=== PATIENT | male | born 1995 | race Caucasian/White ===

== ENCOUNTER 2023-06-23 08:58 | Emergency (ER) | payer OTHER, SELFPAY ==
[2023-06-23 09:04] VITALS: BP 128/95; PULSE 80; RESP 18; TEMP 36.6; O2SAT 98; BMI 37.4
--- NOTE | 2023-06-23 09:15 | ED.BACK1 ---
HPI - Back Pain/Injury General Chief Complaint: Back Pain/Injury Stated Complaint: BACK PAIN Time Seen by Provider: 06/23/23 09:06 Source: patient Mode of arrival: walk-in History of Present Illness HPI Narrative: [age] sexual male presents for lower back pain. He's had it for two weeks and it started after lifting a heavy item and he twisted and since then he's had pain. It doesn't radiate. He didn't fall and nothing struck him in his back. The pain is moderate and worse in certain positions. No dysuria or hematuria or abdominal pain. Related Data Previous Rx's Medication Instructions Recorded cyclobenzaprine 10 mg tablet 10 mg PO TID PRN muscle spasm #20 06/23/23 tabs etodolac 400 mg tablet (Lodine) 400 mg PO BID #20 tabs 06/23/23 Allergies Allergy/AdvReac Type Severity Reaction Status Date / Time acetaminophen AdvReac Intermediate Verified 06/23/23 09:04 [From Tylenol-Codeine #3] codeine AdvReac Intermediate Verified 06/23/23 09:04 [From Tylenol-Codeine #3] Review of Systems ROS Narrative A ten point review of systems is negative except as noted above. Exam Narrative Exam Narrative: Nurses note and vital signs reviewed and patient is not hypoxic. General: The patient appears well and in no apparent distress. Patient is resting comfortably on cart. he has discomfort rolling onto his side for back examination. Skin: Warm, dry, no pallor noted. There is no rash noted. Head: Normocephalic, atraumatic Eye: Normal conjunctiva, no drainage Ears, Nose, Mouth, and Throat: oral mucosa is moist. Nares patent. Cardiovascular: Regular Rate and Rhythm Respiratory: Patient is in no distress, no accessory muscle use, lungs are clear to auscultation, no wheezing, rales or rhonchi Back: non-tender, no CVA tenderness bilaterally to percussion. GI: soft and nontender Musculoskeletal: examination of his back shows no bruise rash or abrasion or focal areas tenderness to palpation. Neurological: A&O, normal speech, strength intact in his lower extremities. Psychiatric: Cooperative Constitutional Vital Signs, click to edit/add: Last Vital Signs Temp 97.8 F 06/23/23 09:04 Pulse 80 06/23/23 09:04 Resp 18 06/23/23 09:04 BP 128/95 H 06/23/23 09:04 Pulse Ox 98 06/23/23 09:04 Course Vital Signs Vital signs: Vital Signs Temperature 97.8 F 06/23/23 09:04 Pulse Rate 80 06/23/23 09:04 Respiratory Rate 18 06/23/23 09:04 Blood Pressure 128/95 H 06/23/23 09:04 Pulse Oximetry 98 06/23/23 09:04 Temperature 97.8 F 06/23/23 09:04 Pulse Rate 80 06/23/23 09:04 Respiratory Rate 18 06/23/23 09:04 Blood Pressure 128/95 H 06/23/23 09:04 Pulse Oximetry 98 06/23/23 09:04 MDM - Back Pain/Injury MDM Narrative Medical decision making narrative: The patient wanted to have x-rays performed and they were negative. My clinical impression is that this is muscle pain and he'll be treated symptomatically. Treatment diagnosis and follow-up were discussed with the patient. Differential Diagnosis Differential diagnosis: Likely lumbar radiculopathy, sciatica and strain of lumbar region Imaging Data lumbar x-ray: Radiologist's impression: no acute findings Discharge Plan Discharge Chief Complaint: Back Pain/Injury Clinical Impression: Strain of lumbar region Patient Disposition: Home, Self-Care Time of Disposition Decision: 11:35 Condition: Good Mode of Transportation: Private Vehicle Prescriptions / Home Meds: New etodolac [Lodine] 400 mg tablet 400 mg PO BID Qty: 20 0RF cyclobenzaprine 10 mg tablet 10 mg PO TID PRN (Reason: muscle spasm) Qty: 20 0RF Instructions: Low Back Strain (ED), Back Pain (ED) Stand Alone Forms: Portal Instructions Referrals: Physician,Non-Staff, MD [Primary Care Provider] - 1 week
[2023-06-23] MEDS: ORPHENADRINE 60 MG/ 2 ML VIAL IM (09:25)
[2023-06-23] MEDS: KETOROLAC TROMETHAMINE 60 MG/2 ML VIAL IM (09:26)
--- NOTE | 2023-06-23 10:08 | XR_ITS ---
[facility] [place] [id number] Patient Name: KERLINE ROBBINS MRN: [id number] date: 1995 Sex: M Assigned Patient Location: ER Current Patient Location: ER Accession/Order Number: [id number] Exam Date: 06/23/2023 11:05 Report Date: 06/23/2023 11:19 At the request of: JIM DOSS Procedure: XR lumbar spine 2-3V EXAMINATION: XR lumbar spine 2-3V, [id number] HISTORY: pain COMPARISON: None. FINDINGS: There are 5 nonrib-bearing lumbar-type vertebral bodies. No acute fracture or suspicious osseous lesion. Spinal alignment is within normal limits. No evidence of dynamic instability on flexion or extension views. No significant intervertebral disc height loss or osseous degenerative changes. Soft tissues are within normal limits. XR/XR lumbar spine 2-3V IMPRESSION: Negative exam. No osseous etiology for low back pain demonstrated. Electronically authenticated by: GRETA DURAN Date: 06/23/2023 11:19
[2023-06-23 11:51] VITALS: BP 122/77; PULSE 64; RESP 14; O2SAT 98
== END 2023-06-23 11:53 | disposition home or self-care (01) ==
PROVIDERS: Emergency Provider Emergency Medicine
DX: S39.012A Strain of muscle, fascia and tendon of lower back, initial encounter (principal); X50.0XXA Overexertion from strenuous movement or load, initial encounter
CPT/HCPCS: 72100; 96372; 99284

== ENCOUNTER 2024-01-11 14:08 | Emergency (ER) | payer SELFPAY ==
[2024-01-11 14:15] VITALS: BP 130/100; PULSE 78; RESP 18; TEMP 37.4; O2SAT 98; BMI 41.1
--- NOTE | 2024-01-11 14:32 | XR_ITS ---
The [address] [address] Patient Name: KERLINE ROBBINS MRN: [id number] date: 1995 Sex: M Assigned Patient Location: ER Current Patient Location: ER Accession/Order Number: [id number] Exam Date: 01/11/2024 14:40 Report Date: 01/11/2024 15:19 At the request of: LANE HAGEN Procedure: XR hand RT 2V EXAM: XR hand RT 2V HISTORY: trauma COMPARISON: None. TECHNIQUE: 2 views right hand FINDINGS: No acute displaced fracture is evident. No dislocation. Soft tissues are unremarkable. XR/XR hand RT 2V IMPRESSION: Negative radiographic evaluation for fracture. Electronically authenticated by: MORENITA MATOS Date: 01/11/2024 15:19
--- NOTE | 2024-01-11 14:34 | ED_ITS ---
HPI - Extremity Injury (Upper) General Chief Complaint: Extremity Injury, Upper Stated Complaint: Upper Injury Time Seen by Provider: 01/11/24 14:32 Source: patient Mode of arrival: walk-in Limitations: no limitations History of Present Illness HPI narrative: Patient presenting to us with multiple abrasion to the right and left hand fingers after he punched a wall while he was angry. The patient denies any other injuries and his last tetanus was more than 5 years ago Related Data Previous Rx's Medication Instructions Recorded cyclobenzaprine 10 mg tablet 10 mg PO TID PRN muscle spasm #20 06/23/23 tabs etodolac 400 mg tablet (Lodine) 400 mg PO BID #20 tabs 06/23/23 bacitracin 500 unit/gram topical 1 applic topical BID #14 grams 01/11/24 ointment Allergies Allergy/AdvReac Type Severity Reaction Status Date / Time acetaminophen AdvReac Intermediate Verified 06/23/23 09:04 [From Tylenol-Codeine #3] codeine AdvReac Intermediate Verified 06/23/23 09:04 [From Tylenol-Codeine #3] Review of Systems ROS Status of ROS 10 or more systems reviewed and unremark able except as noted in history and below Exam Narrative Exam Narrative: Nurses notes and vital signs reviewed and patient is not hypoxic. General: Well-appearing and in no apparent distress. Skin: Warm, dry, no pallor noted. No rash. Head: Normocephalic, atraumatic. Neck: Supple, non-tender. Eye: Pupils are equal, round and EOMI. No scleral icterus. Ears, Nose, Mouth, and Throat: TM are clear, no nasal mucosal hypertrophy. Oral mucosa is moist, no posterior oropharynx erythema, uvula is mid-line Cardiovascular: Regular Rate and Rhythm without murmur, gallop or rub. Respiratory: No accessory muscle use or respiratory distress. Lungs are clear to auscultation, no wheezing, rales or rhonchi Chest Wall: no tenderness Back: No midline thoracic or lumbar vertebral tenderness. No CVA tenderness Musculoskeletal: normal ROM, no calf or popliteal tenderness, no lower extremity edema/swelling, multiple abrasions on the proximal interphalangeal joint of all the fingers on the right hand are superficial limited to almost half centimeter oval in shape. No signs of infection GI: Abdomen is soft, non-distended. Normal bowel sounds. No masses appreciated. No tenderness to palpation. No rebound, guarding, or rigidity noted. Neurological: A&O x4. No cranial nerve dysfunction observed. No truncal ataxia. Moves all extremities. Sensation intact. Psychiatric: Cooperative and interactive. Normal mood and affect. Constitutional Vital Signs, click to edit/add: Last Vital Signs Temp 99.3 F 01/11/24 14:15 Pulse 76 01/11/24 15:02 Resp 18 01/11/24 15:02 BP 128/88 01/11/24 15:02 Pulse Ox 98 01/11/24 15:02 Course Vital Signs Vital signs: Vital Signs Temperature 99.3 F 01/11/24 14:15 Pulse Rate 78 01/11/24 14:15 Respiratory Rate 18 01/11/24 14:15 Blood Pressure 130/100 H 01/11/24 14:15 Pulse Oximetry 98 01/11/24 14:15 Temperature 99.3 F 01/11/24 14:15 Pulse Rate 76 01/11/24 15:02 Respiratory Rate 18 01/11/24 15:02 Blood Pressure 128/88 01/11/24 15:02 Pulse Oximetry 98 01/11/24 15:02 MDM - Extremity Injury (Upper) MDM Narrative Medical decision making narrative: X-ray of the patient right hand showed no acute pathology and the patient was treated supportively with bacitracin The patient also had tetanus booster in the ER The patient is to follow up with primary care physician in next 2-3 days or to return to the emergency department should any of the signs or symptoms worsen or new symptoms develop. The patient agrees with the following Diagnosis and Treatment plan and the patient will be discharged home. Discharge Plan Discharge Chief Complaint: Extremity Injury, Upper Clinical Impression: Contusion of hand Qualifiers: Encounter type: initial encounter Laterality: unspecified laterality Qualified Code(s): S60.229A - Contusion of unspecified hand, initial encounter Patient Disposition: Home, Self-Care Time of Disposition Decision: 15:26 Condition: Good Prescriptions / Home Meds: New bacitracin 500 unit/gram ointment 1 applic topical BID Qty: 14 0RF No Action etodolac [Lodine] 400 mg tablet 400 mg PO BID Qty: 20 0RF cyclobenzaprine 10 mg tablet 10 mg PO TID PRN (Reason: muscle spasm) Qty: 20 0RF Instructions: Contusion in Adults (ED) Stand Alone Forms: Portal Instructions Referrals: Physician,Non-Staff, MD [Primary Care Provider] - 1 week
[2024-01-11] MEDS: ADACEL DIPH,PERTUSS(ACELL),TET VAC/PF 0.5 ML ADULT SYRINGE IM (14:54)
[2024-01-11 15:02] VITALS: BP 128/88; PULSE 76; RESP 18; O2SAT 98
== END 2024-01-11 15:34 | disposition home or self-care (01) ==
PROVIDERS: Emergency Provider Emergency Medicine
DX: S60.229A Contusion of unspecified hand, initial encounter (principal); Z23 Encounter for immunization; W22.01XA Walked into wall, initial encounter
CPT/HCPCS: 73120; 90471; 90715; 99283

== ENCOUNTER 2024-08-16 00:32 | Emergency (ER) | payer SELFPAY ==
[2024-08-16 00:37] VITALS: BP 145/89; PULSE 52; TEMP 36.6; O2SAT 100; BMI 38.5
--- OUTSIDE RECORDS SUMMARY | 2024-08-16 00:38 | XMS_ITS | CCD ---
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 Name Role Phone Unavailable Primary Care Provider UnavailAVERY High Attending Unavailable Unavailable Primary Care Provider Unavailabl e Allergies Allergy Classification Reported Allergen(s) Allergy Type Date of Onset Reaction(s) Facility (2 sources) Acetaminophen / Codeine Drug Allergy 09-11-2021 [facility] Medications Current Medications Medication Drug Class(es) Dates Sig (Normalized) Sig (Original) ketorolac tromethamine 10 mg oral tablet (2 sources) Nonsteroidal Anti-inflammatory Drug, Cyclooxygenase Inhibitor Start: 09-11-2021 take 1 tablet by mouth every six hours as needed for pain ketorolac (TORADOL) 10 MG tablet Take 1 tablet by mouth every 6 hours as needed for Pain 20 tablet 0 09/11/2021 Active Start: 09-11-2021 ketorolac (TOR ADOL) injection 30 mg naproxen 500 mg oral tablet (1 source) Nonsteroidal Anti-inflammatory Drug Start: 06-24-2018 take 1 tablet by mouth twice daily naproxen (NAPROSYN) 500 MG tablet Take 1 tablet by mouth 2 times daily for 20 doses 20 tablet 0 06/24/2018 Active Completed/Discontinued Medications Medication Drug Class(es) Dates Sig (Normalized) Sig (Original) 1 ml diphenhydrAMINE hydrochloride 50 mg/ml cartridge (1 source) Histamine-1 Receptor Antagonist Start: 09-11-2021 End: 09-11-2021 diphenhydrAMINE (BENADRYL) injection 25 mg fluticasone propionate 0.05 mg/actuat metered dose nasal spray (1 source) Corticosteroid Start: 10-03-2021 take 1 spray(s) nasal route once daily fluticasone (FLONASE ALLERGY RELIEF) 50 mcg/actuation nasal spray Indications: Viral URI with cough Use 1 [place] in each nostril once daily. 9.9 mL 0 10/03/2021 Active Comment on above: Use 1 [place] in each nostril once daily. meclizine hydrochloride 25 mg oral tablet (1 source) Antiemetic Start: 10-03-2021 take 1 tablet by mouth every six hours as needed for dizziness meclizine (ANTIVERT) 25 mg tab Indications: Viral URI with cough Take 1 tablet by mouth every 6 hours as needed (for dizziness). 9 tablet 0 10/03/2021 Active Comment on above: Take 1 tablet by vanda th every 6 hours as needed (for dizziness). 2 ml metoclopramide 5 mg/ml prefilled syringe (1 source) Dopamine-2 Receptor Antagonist Start: 09-11-2021 End: 09-11-2021 metoclopramide (REGLAN) injection 10 mg 50 ml sodium chloride 9 mg/ml injection (1 source) Start: 09-11-2021 End: 09-11-2021 0.9 % sodium chloride bolus Problems Problem Classification Problem Date Documented Da te Episodic/Chronic Headache; including migraine (1 source) Tension-type headache; Translations: [Tension-type headache, unspecified, not intractable] Chronic Headache; including migraine (1 source) Headache; Translations: [Nonintractable episodic headache, unspecified headache type] Episodic Mood disorders (2 sources) Major depressive disorder, single episode, unspecified; Translations: [Major depressive disorder. Single episode. Unspecified] Onset: 10-09-2022 Chronic Other upper respiratory infections (1 source) Viral upper respiratory tract infection; Translations: [Acute upper respiratory infection, unspecified] Episodic Results Test Name Value Interpretation Reference Range Facility SARS-CoV-2 RNA Resp Ql FRANCISCO+p carolyne 06-14-2022 SARS-CoV-2 (COVID-19) RNA FRANCISCO+probe Ql (Resp) COVID 19 RESULT: SARS-CoV-2 (Agent of COVID-19) Detected by RT-PCR or equivalent method. This test was developed and its performance characteristics determined by [facility]'s [facility] [place]. This test has been authorized by FDA under an Emergency Use Authorization (EUA). This test has been validated in accordance with the FDA's Guidance Document Policy for Diagnostics Testing in Laboratories Certified to Perform High Complexity Testing under CLIA prior to Emergency use Authorization for Coronavirus Disease 2019 during the Public Health Emergency issued on January 15, 2020. Test performed by [facility], [facility] [place], [facility] [place] [address]. Normal [facility] Comment on above: Performed By: #### 9 [id number] #### [facility] CLIA [id number] [address] [place] [address] [facility] CNPNon 10-04-2021 CNPN Telephone (EXPLOR) KERLINE MORTON ([id number]) 1995 M Date Time Provider Department 10/04/21 MARIELOS CAMPBELL During your visit today, we recorded the following information about you: Marielos Campbell APRN.[employer] 10/04/2021 5:28 PM Signed Pt called to notify of positive covid result. Pt is currently isolating. Is managing symptoms with currently recommended therapies. Pt instructed to got to ED for any SOB, chest pain or uncontrolled fever. All questions answered Marielos Campbell APRN.[employer] Allergies As of Date: 10/04/2021 Noted Allergy Reaction ACETAMINOPHEN-CODEIN E 10/03/2021 7 - Swelling Date Reviewed: 10/03/2021 Reviewed by: Kati Yi LPN - Fully Assessed Reason for Visit: Results [95] Prescriptions as of 10/04/2021 - fluticasone (FLONASE ALLERGY RELIEF) 50 mcg/actuation nasal spray Use 1 [place] in each nostril once daily. - meclizine (ANTIVERT) 25 mg tab Take 1 tablet by mouth every 6 hours as needed (for dizziness). Problem List As Of Date: 10/04/2021 (None) Encounter Status:Closed by MARIELOS CAMPBELL on 10/04/21 Normal [facility] COVID w FLU A+B Routon 10-04 Influenza A PCR Negative Normal [facility] Comment on above: Performed By: #### C OVFLU #### [place] [address] Influenza B PCR Negative Normal [facility] Comment on above: Performed By: #### C OVFLU #### [place] [address] SARS-CoV-2 (COVID-19) RNA FRANCISCO+probe Ql (Unsp spec) UPPER RESPIRATORY TRACT SWAB Normal [facility] Comment on above: Performed By: #### C OVFLU #### [place] [address] SARS-CoV-2 (COVID-19) RNA FRANCISCO+probe Ql (Unsp spec) Positive for COVID19 (SARS CoV2) by RT-PCR or equivalent method. Critically abnormal Negative for COVID19 (SARS CoV2) by RT-PCR or equivalent method. [facility] Comment on above: Result Comment: This test was developed and its performance characteristics determined by [facility]'s [facility] [place]. This test has been authorized by FDA under an Emergency Use Authorization (EUA). This test has been validated in accordance with the FDA's Guidance Document Policy for Diagnostics Testing in Laboratories Certified to Perform High Complexity Testing under CLIA prior to Emergency use Authorization for Coronavirus Disease 2019 during the Public Health Emergency issued on January 15, 2020. Test performed by [facility], [facility] [place], [address] [place] [address]. Performed By: #### C OVFLU #### [place] [address] Lizz 10-03-2021 CNOV Office Visit (EXPLOR) KERLINE MORTON ([id number]) 1995 M Date Time Provider Department 10/03/21 5:55 PM TRINIDAD VIRGEN During your visit today, we recorded the following information about you: Temperature Pulse Blood pressure 98 degrees 98/minute 131/75 Trinidad Virgen APRN.CNP 10/03/2021 6:53 PM Signed This note was created using NoteWriter. Subjective Kerline Morton is a 26 year old male. HPI C/o uri symptoms, ear fullness, dizziness, and body aches for the last couple days. Dizziness exacerbated with rapid head movements and resolves in seconds. Daughters ill with URI symptoms 2 weeks agobut were negative for covid. No other sick contacts. Admits Dayquil with little relief. Also c/o bilatral band like headaches for a month. Was seen in ED with negative workup - ibuprofen helps. Admits neck tightness. No weakness, numbness, or tingling. Has an appointment to establish with PCP in october 18. Fever (?100.4F): Yes or Chills: Yes Cough: Yes Shortness of breath: No or Difficulty breathing: No Fatigue: Yes Muscle aches: Yes Headache: Yes New loss of smell or taste: No Sore throat: Yes Nasal congestion: Yes or Rhinorrhea: Yes Nausea: Yes or Vomiting: Yes - once Diarrhea: No No past medical history on file. No past surgical history on file. ALLERGIES Acetaminophen-Codein e MEDICATIONS No prescriptions on file. No family history on file. Social History Tobacco Use - Smoking status: Not on file - Smokeless tobacco: Not on file Substance Use Topics - Alcohol use: Not on file - Drug use: Not on file Review of Systems Constitutional: Positive for chills, fatigue and fever. Negative for activity change and appetite change. HENT: Positive for congestion, postnasal drip, rhinorrhea, sinus pressure and sore throat. Negative for drooling, ear discharge, ear pain, hearing loss, sinus pain, sneezing, tinnitus, trouble swallowing and voice change. Eyes: Positive for photophobia (none currently). Negative for pain, discharge, redness, itching and visual disturbance. Respiratory: Positive for cough. Negative for chest tightness, shortness of breath and wheezing. Cardiovascular: Negative for chest pain and palpitations. Gastrointestinal: Positive for nausea. Negative for diarrhea and vomiting. Musculoskeletal: Positive for myalgias. Negative for arthralgias. Skin: Negative for pallor and rash. Neurological: Positive for dizziness and headaches. Negative for syncope, weakness, light-headedness and numbness. Objective BP 131/75 Pulse 98 Temp 36.7 ?C (98 ?F) SpO2 100% Physical Exam Constitutional: General: He is not in acute distress. Appearance: He is well-developed. He is ill-appearing. He is not toxic-appearing. HENT: Head: Normocephalic and atraumatic. Right Ear: Hearing, ear canal and external ear normal. A middle ear effusion (clear) is present. Left Ear: Hearing, ear canal and external ear normal. A middle ear effusion (clear) is present. Ears: Comments: Pt spontaneously lays down on exam table and sits back up. Dizziness reproduced - resolves spontaneously in seconds Nose: Mucosal edema and rhinorrhea present. Rhinorrhea is clear. Right Sinus: No maxillary sinus tenderness or frontal sinus tenderness. Left Sinus: No maxillary sinus tenderness or frontal sinus tenderness. Mouth/Throat: Lips: [place]. Mouth: Mucous membranes are moist. Tongue: Tongue does not deviate from midline. Pharynx: Oropharynx is clear. Uvula midline. Posterior oropharyngeal erythema present. No pharyngeal swelling, oropharyngeal exudate or uvula swelling. Tonsils: No tonsillar exudate or tonsillar abscesses. Eyes: General: Lids are normal. Vision grossly intact. Gaze aligned appropriately. Extraocular Movements: Extraocular movements intact. Conjunctiva/sclera: Conjunctivae normal. Pupils: Pupils are equal, round, and reactive to light. Neck: Trachea: Phonation normal. Cardiovascular: Rate and Rhythm: Normal rate and regular rhythm. Heart sounds: Normal heart sounds, S1 normal and S2 normal. Pulmonary: Effort: Pulmonary effort is normal. No respiratory distress. Breath sounds: Normal breath sounds and air entry. No decreased breath sounds, wheezing, rhonchi or rales. Chest: Chest wall: No tenderness. Musculoskeletal: Cervical back: Normal range of motion and neck supple. Lymphadenopathy: Head: Right side of head: No submental, submandibular, tonsillar, preauricular, posterior auricular or occipital adenopathy. Left side of head: No submental, submandibular, tonsillar, preauricular, posterior auricular or occipital adenopathy. Cervical: No cervical adenopathy. Skin: General: Skin is warm and dry. Capillary Refill: Capillary refill takes less than 2 seconds. Coloration: Skin is not cyanotic, mottled or pale. Finding (more content not included)... Normal [facility] CT HEAD WO CONTRASTon 2020 CT HEAD WO CONTRAST CT Brain. Contrast medium: without contrast.. History: Headache for 4 days. Technical factors: CT imaging of the brain was obtained and formatted as 5 mm contiguous axial images. 2.5 mm contiguous axial images were obtained through the osseous structures. Sagittal and coronal reconstruction obtained during postprocessing. Comparison: None. Findings: Extra-axial spaces: Normal. Intracranial hemorrhage: None. Ventricular system: [Without anomaly.] Basal Cisterns: Normal. Cerebral Parenchyma: [Without anomaly]. Midline Shift: None. Cerebellum: Normal. Paranasal sinuses and mastoid air cells: Normal. Visualized Orbits: Normal. IMPRESSION: Impression: [Negative CT of the brain]. All CT scans at this facility use dose modulation, iterative reconstruction, and/or weight based dosing when appropriate to reduce radiation dose to as low as reasonably achievable. Interpreted by: Christ Alas MD Signed by: Christ Alas MD 09/11/[address] HEAD WO CONTRASTOrdered B y: Avery Nova on 09-11-2021 Impression: [Negative CT of the brain]. All CT scans at this facility use dose modulation, iterative reconstruction, and/or weight based dosing when appropriate to reduce radiation dose to as low as reasonably achievable. [facility] Work Phone: CT Brain. Contrast medium: without contrast.. History: Headache for 4 days. Technical factors: CT imaging of the brain was obtained and formatted as 5 mm contiguous axial images. 2.5 mm contiguous axial images were obtained through the osseous structures. Sagittal and coronal reconstruction obtained during postprocessing. Comparison: None. Findings: Extra-axial spaces: Normal. Intracranial hemorrhage: None. Ventricular system: [Without anomaly.] Basal Cisterns: Normal. Cerebral Parenchyma: [Without anomaly]. Midline Shift: None. Cerebellum: Normal. Paranasal sinuses and mastoid air cells: Normal. Visualized Orbits: Normal. [facility] Work Phone: [place], [place] Incoming Radiant Results From [employer] - 09/11/2021 10:[address] Brain. Contrast medium: without contrast.. History: Headache for 4 days. Technical factors: CT imaging of the brain was obtained and formatted as 5 mm contiguous axial images. 2.5 mm contiguous axial images were obtained through the osseous structures. Sagittal and coronal reconstruction obtained during postprocessing. Comparison: None. Findings: Extra-axial spaces: Normal. Intracranial hemorrhage: None. Ventricular system: [Without anomaly.] Basal Cisterns: Normal. Cerebral Parenchyma: [Without anomaly]. Midline Shift: None. Cerebellum: Normal. Paranasal sinuses and mastoid air cells: Normal. Visualized Orbits: Normal. IMPRESSION: Impression: [Negative CT of the brain]. All CT scans at this facility use dose modulation, iterative reconstruction, and/or weight based dosing when appropriate to reduce radiation dose to as low as reasonably achievable. [facility] Work Phone: [facility] Work Phone: Vital Signs Date Time Vital Sign Value Performing Clinician Facility 10-03-2021 18:06-0500 Body temperature 98.01 [degF] Trinidad Virgen APRN.[employer] Work Phone: [facility] 10-03-2021 18:06-0500 Diastolic blood pressure 75 mm[Hg] Trinidad Virgen APRN[employer] Work Phone: [facility] 10-03-2021 18:06-0500 Heart rate 98 /min Trinidad Virgen APRN[employer] Work Phone: [facility] 10-03-2021 18:06-0500 SaO2% (BldA) [Mass fraction] 100 % Trinidad Virgen APRN[employer] Work Phone: [facility] 10-03-2021 18:06-0500 Systolic blood pressure 131 mm[Hg] Trinidad Virgen APRN[employer] Work Phone: [facility] 09-11-2021 11:00-0400 Diastolic blood pressure 71 mm[Hg] Avery Nova MD Work Phone: [facility] Work Phone: 09-11-2021 11:00-0400 SaO2% (BldA) [Mass fraction] 98 % Avery Nova MD Work Phone: [facility] Work Phone: 09-11-2021 11:00-0400 Systolic blood pressure 128 mm[Hg] Avery Nova MD Work Phone: [facility] Work Phone: 09-11-2021 10:43-0400 Heart rate 71 /min Avery Nova MD Work Phone: [facility] Work Phone: 09-11-2021 10:43-0400 Respiratory rate 18 /min Avery Nova MD Work Phone: [facility] Work Phone: 09-11-2021 09:49-0400 Body height 188 cm Avery Nova MD Work Phone: [facility] Work Phone: 09-11-2021 09:49-0400 Body mass index (BMI) [Ratio] 43.65 kg/m2 Avery Nova MD Work Phone: [facility] Work Phone: 09-11-2021 09:49-0400 Body temperature 97 [degF] Avery Nova MD Work Phone: [facility] Work Phone: 09-11-2021 09:49-0400 Body weight 154.22 kg Avery Nova MD Work Phone: [facility] Work Phone: Encounters Encounter Date Encounter Type Care Provider Facility Start: 10-09-2022 End: 04-12-2023 [facility] Start: 10-03-2021 End: 10-03-2021 Patient encounter procedure Trinidad Virgen NASREEN[employer] Work Phone: [facility] Comment on above: Viral URI with cough (Primary Dx); Tension headache Start: 09-11-2021 End: 09-11-2021 Emergency department patient visit AVERY NOVA Start: 09-11-2021 End: 09-11-2021 Emergency department patient visit Avery Nova MD Work Phone: [facility] Comment on above: Nonintractable episo dic headache, unspecified headache type (Primary Dx) Procedures Date Procedure Procedure Detail Performing Clinician Start: 09-11-2021 Ct head/brain w/o contrast material Avery Nova MD Work Phone: Plan of Treatment Date Care Activity Detail Author Start: 07-18-2021 Influenza vaccination [facility] Start: 2015 DTaP/Tdap/Td vaccine (1 - Tdap) DTaP/Tdap/Td vaccine (1 - Tdap) [facility] Work Phone: Start: 2015 Urine microalbumin profile DTAP,TDAP,TD (1 - Tdap) [facility] Start: 2014 HEPATITIS C SCREENING HEPATITIS C SC NHUNG [facility] Start: 2014 HIV SCREENING HIV SCREENING [facility] Start: 2011 HIV screening HIV screen [facility] Work Phone: Start: 2008 Adult depression screening assessment DEPRESSION SCREENING [facility] Start: 2008 COVID-19 Vaccine (1) COVID-19 Vaccin e (1) [facility] Work Phone: Start: 2007 HPV vaccine (1 - Mal e 2-dose series) HPV vaccine (1 - Male 2-dose series) [facility] Start: 2001 COVID-19 VACCINE (1) COVID-19 VACCIN E (1) [facility] Start: 1997 Varicella vaccine (1 of 2 - 2-dose childhood series) Varicella vaccine (1 of 2 - 2-dose childhood series) [employer] Phone: Start: 1996 Hepatitis C screening Hepatitis C sc traci [employer] Phone: COVID WITH FLUA+B, ROUTINE COVID WITH FLUA+B, ROUTINE Microbiology Routine Viral URI with cough Ordered: 10/03/2021 [facility] Work Phone: Comment on above: Ordered: 10/03/2021 Payers Date Payer Category Payer Private Health Insurance [id number] 2022 Unknown [id number] 2021 Unknown [employer] BLUE CARD PPO OOS [id number] 2021-Present [phone] [address] [place] [address] PPO [id number] 2021 Private Health Insurance [id number] 1995 Unknown [id number] Social History Date Type Detail Facility Start: 09-11-2021 Tobacco smoking status NHIS Current every day smoker [employer] Phone: History of tobacco use [facility] Start: 09-11-2021 Tobacco use and exposure Never used [facility] Start: 09-11-2021 Alcohol intake Ex-drinker (finding) [employer] Phone: Start: 1995 Sex Assigned At Not on file [employer] Phone: Exposure to SARS-CoV-2 (event) Not sure [facility] Tobacco smoking status NHIS Tobacco smoking consumption unknown [facility] Progress note 10-03-2021 Note Date & Type Note Facility 10-03-2021 Note HNO ID: [id number] Author: Trinidad Virgen APRN.[employer] Service: ? Author Type: Nurse Practitioner Type: Progress Notes Filed: 10/03/2021 6:53 PM Note Text: This note was created using NoteWriter. Subjective Kerline Morton is a 26 year old male. HPI C/o uri symptoms, ear fullness, dizziness, and body aches for the last couple days. Dizziness exacerbated with rapid head movements and resolves in seconds. Daughters ill with URI symptoms 2 weeks agobut were negative for covid. No other sick contacts. Admits Dayquil with little relief. Also c/o bilatral band like headaches for a month. Was seen in ED with negative workup - ibuprofen helps. Admits neck tightness. No weakness, numbness, or tingling. Has an appointment to establish with PCP in october 18. Fever (?100.4F): Yes or Chills: Yes Cough: Yes Shortness of breath: No or Difficulty breathing: No Fatigue: Yes Muscle aches: Yes Headache: Yes New loss of smell or taste: No Sore throat: Yes Nasal congestion: Yes or Rhinorrhea: Yes Nausea: Yes or Vomiting: Yes - once Diarrhea: No No past medical history on file. No past surgical history on file. ALLERGIES Acetaminophen-Codeine MEDICATIONS No prescriptions on file. No family history on file. Social History Tobacco Use - Smoking status: Not on file - Smokeless tobacco: Not on file Substance Use Topics - Alcohol use: Not on file - Drug use: Not on file Review of Systems Constitutional: Positive for chills, fatigue and fever. Negative for activity change and appetite change. HENT: Positive for congestion, postnasal drip, rhinorrhea, sinus pressure and sore throat. Negative for drooling, ear discharge, ear pain, hearing loss, sinus pain, sneezing, tinnitus, trouble swallowing and voice change. Eyes: Positive for photophobia (none currently). Negative for pain, discharge, redness, itching and visual disturbance. Respiratory: Positive for cough. Negative for chest tightness, shortness of breath and wheezing. Cardiovascular: Negative for chest pain and palpitations. Gastrointestinal: Positive for nausea. Negative for diarrhea and vomiting. Musculoskeletal: Positive for myalgias. Negative for arthralgias. Skin: Negative for pallor and rash. Neurological: Positive for dizziness and headaches. Negative for syncope, weakness, light-headedness and numbness. Objective BP 131/75 Pulse 98 Temp 36.7 ?C (98 ?F) SpO2 100% Physical Exam Constitutional: General: He is not in acute distress. Appearance: He is well-developed. He is ill-appearing. He is not toxic-appearing. HENT: Head: Normocephalic and atraumatic. Right Ear: Hearing, ear canal and external ear normal. A middle ear effusion (clear) is present. Left Ear: Hearing, ear canal and external ear normal. A middle ear effusion (clear) is present. Ears: Comments: Pt spontaneously lays down on exam table and sits back up. Dizziness reproduced - resolves spontaneously in seconds Nose: Mucosal edema and rhinorrhea present. Rhinorrhea is clear. Right Sinus: No maxillary sinus tenderness or frontal sinus tenderness. Left Sinus: No maxillary sinus tenderness or frontal sinus tenderness. Mouth/Throat: Lips: [place]. Mouth: Mucous membranes are moist. Tongue: Tongue does not deviate from midline. Pharynx: Oropharynx is clear. Uvula midline. Posterior oropharyngeal erythema present. No pharyngeal swelling, oropharyngeal exudate or uvula swelling. Tonsils: No tonsillar exudate or tonsillar abscesses. Eyes: General: Lids are normal. Vision grossly intact. Gaze aligned appropriately. Extraocular Movements: Extraocular movements intact. Conjunctiva/sclera: Conjunctivae normal. Pupils: Pupils are equal, round, and reactive to light. Neck: Trachea: Phonation normal. Cardiovascular: Rate and Rhythm: Normal rate and regular rhythm. Heart sounds: Normal heart sounds, S1 normal and S2 normal. Pulmonary: Effort: Pulmonary effort is normal. No respiratory distress. Breath sounds: Normal breath sounds and air entry. No decreased breath sounds, wheezing, rhonchi or rales. Chest: Chest wall: No tenderness. Musculoskeletal: Cervical back: Normal range of motion and neck supple. Lymphadenopathy: Head: Right side of head: No submental, submandibular, tonsillar, preauricular, posterior auricular or occipital adenopathy. Left side of head: No submental, submandibular, tonsillar, preauricular, posterior auricular or occipital adenopathy. Cervical: No cervical adenopathy. Skin: General: Skin is warm and dry. Capillary Refill: Capillary refill takes less than 2 seconds. Coloration: Skin is not cyanotic, mottled or pale. Findings: No rash. Neurological: General: No focal deficit present. Mental Status: He is alert and oriented to person, place, and time. Cranial Nerves: Cranial nerves are intact. Sensory: Sensation is intact. Motor: Motor function is intact. Coor (more content not included)... [facility] 10-03-2021 Patient Instructions Note Date & Type Note Facility 10-03-2021 Instructions Trinidad Virgen APRN.LIZBET - 10/03/2021 6:36 PM EST 1. Viral URI with cough - COVID WITH FLUA+B, ROUTINE Will get results in 24-48 hours Start home isolation Results will be released to [facility] immediately and may come back outside of office hours -rest and increased fluid intake -tylenol or ibuprofen as directed -humidification -vicks or nasal saline as directed - fluticasone (FLONASE ALLERGY RELIEF) 50 mcg/actuation nasal spray; Use 1 [place] in each nostril once daily. Dispense: 9.9 mL; Refill: 0 - meclizine (ANTIVERT) 25 mg tab; Take 1 tablet by mouth every 6 hours as needed (for dizziness). Dispense: 9 tablet; Refill: 0 Can cause drowsiness 2. Tension headache -can continue OTC's as directed -follow up with new PCP for stepwise treatment -heat and stretching of neck can help Seek follow up care: As needed for new or worsening symptoms Go to the ER immediately if you have any of the following symptoms: Chest pain, shortness of breath, severe headache, high fever, severe nausea, vomiting, or diarrhea, abdominal pain, dizziness/light headedness, feeling like you are going to pass out documented in this encounter [facility] History of Present illness Narrative 10-03-2021 Trinidad Virgen APRN.LIZBET - 10/03/2021 6:19 PM EST Note Date & Type Note Facility 10-03-2021 History of Presen t illness Narrative This note was created using NoteWriter. Subjective Kerline Morton is a 26 year old male. HPI C/o uri symptoms, ear fullness, dizziness, and body aches for the last couple days. Dizziness exacerbated with rapid head movements and resolves in seconds. Daughters ill with URI symptoms 2 weeks agobut were negative for covid. No other sick contacts. Admits Dayquil with little relief. Also c/o bilatral band like headaches for a month. Was seen in ED with negative workup - ibuprofen helps. Admits neck tightness. No weakness, numbness, or tingling. Has an appointment to establish with PCP in october 18. Fever (?100.4F): Yes or Chills: Yes Cough: Yes Shortness of breath: No or Difficulty breathing: No Fatigue: Yes Muscle aches: Yes Headache: Yes New loss of smell or taste: No Sore throat: Yes Nasal congestion: Yes or Rhinorrhea: Yes Nausea: Yes or Vomiting: Yes - once Diarrhea: No No past medical history on file. No past surgical history on file. ALLERGIES Acetaminophen-Codeine MEDICATIONS No prescriptions on file. No family history on file. Social History Tobacco Use Smoking status: Not on file Smokeless tobacco: Not on file Substance Use Topics Alcohol use: Not on file Drug use: Not on file Review of Systems Constitutional: Positive for chills, fatigue and fever. Negative for activity change and appetite change. HENT: Positive for congestion, postnasal drip, rhinorrhea, sinus pressure and sore throat. Negative for drooling, ear discharge, ear pain, hearing loss, sinus pain, sneezing, tinnitus, trouble swallowing and voice change. Eyes: Positive for photophobia (none currently). Negative for pain, discharge, redness, itching and visual disturbance. Respiratory: Positive for cough. Negative for chest tightness, shortness of breath and wheezing. Cardiovascular: Negative for chest pain and palpitations. Gastrointestinal: Positive for nausea. Negative for diarrhea and vomiting. Musculoskeletal: Positive for myalgias. Negative for arthralgias. Skin: Negative for pallor and rash. Neurological: Positive for dizziness and headaches. Negative for syncope, weakness, light-headedness and numbness. Objective BP 131/75 Pulse 98 Temp 36.7 C (98 F) SpO2 100% Physical Exam Constitutional: General: He is not in acute distress. Appearance: He is well-developed. He is ill-appearing. He is not toxic-appearing. HENT: Head: Normocephalic and atraumatic. Right Ear: Hearing, ear canal and external ear normal. A middle ear effusion (clear) is present. Left Ear: Hearing, ear canal and external ear normal. A middle ear effusion (clear) is present. Ears: Comments: Pt spontaneously lays down on exam table and sits back up. Dizziness reproduced - resolves spontaneously in seconds Nose: Mucosal edema and rhinorrhea present. Rhinorrhea is clear. Right Sinus: No maxillary sinus tenderness or frontal sinus tenderness. Left Sinus: No maxillary sinus tenderness or frontal sinus tenderness. Mouth/Throat: Lips: [place]. Mouth: Mucous membranes are moist. Tongue: Tongue does not deviate from midline. Pharynx: Oropharynx is clear. Uvula midline. Posterior oropharyngeal erythema present. No pharyngeal swelling, oropharyngeal exudate or uvula swelling. Tonsils: No tonsillar exudate or tonsillar abscesses. Eyes: General: Lids are normal. Vision grossly intact. Gaze aligned appropriately. Extraocular Movements: Extraocular movements intact. Conjunctiva/sclera: Conjunctivae normal. Pupils: Pupils are equal, round, and reactive to light. Neck: Trachea: Phonation normal. Cardiovascular: Rate and Rhythm: Normal rate and regular rhythm. Heart sounds: Normal heart sounds, S1 normal and S2 normal. Pulmonary: Effort: Pulmonary effort is normal. No respiratory distress. Breath sounds: Normal breath sounds and air entry. No decreased breath sounds, wheezing, rhonchi or rales. Chest: Chest wall: No tenderness. Musculoskeletal: Cervical back: Normal range of motion and neck supple. Lymphadenopathy: Head: Right side of head: No submental, submandibular, tonsillar, preauricular, posterior auricular or occipital adenopathy. Left side of head: No submental, submandibular, tonsillar, preauricular, posterior auricular or occipital adenopathy. Cervical: No cervical adenopathy. Skin: General: Skin is warm and dry. Capillary Refill: Capillary refill takes less than 2 seconds. Coloration: Skin is not cyanotic, mottled or pale. Findings: No rash. Neurological: General: No focal deficit present. Mental Status: He is alert and oriented to person, place, and time. Cranial Nerves: Cranial nerves are intact. Sensory: Sensation is intact. Motor: Motor function is intact. Coordination: Coordination is intact. Gait: Gait is intact. Psychiatric: Attention and Perception: Attention normal. Mood and Affect: Mood normal. Speech: Speech normal. Behavior: Behavior normal. Thought Content: Thought content normal. Assessment and Plan 1. Viral URI with cough - COVID WITH FLUA+B, ROUTINE Will get results in 24-48 hours Start home isolation Results will be released to [facility] immediately and may come back outside of office hours -rest and increased fluid intake -tylenol or ibuprofen as directed -humidification -vicks or nasal saline as directed - fluticasone (FLONASE ALLERGY RELIEF) 50 mcg/actuation nasal spray; Use 1 [place] in each nostril once daily. Dispense: 9.9 mL; Refill: 0 - meclizine (ANTIVERT) 25 mg tab; Take 1 tablet by mouth every 6 hours as needed (for dizziness). Dispense: 9 tablet; Refill: 0 Can cause drowsiness 2. Tension headache -can continue OTC's as directed -follow up with new PCP for stepwise treatment -heat and stretching of neck can help Seek follow up care: As needed for new or worsening symptoms Go to the ER immediately if you have any of the following symptoms: Chest pain, shortness of breath, severe headache, high fever, severe nausea, vomiting, or diarrhea, abdominal pain, dizziness/light headedness, feeling like you are going to pass out he verbalizes understanding and agrees with treatment plan Trinidad Virgen APRN.[employer] documented in this encounter [facility] Evaluation note Note Date & Type Note Facility Evaluation note Diagnosis Nonintractable episodic headache, unspecified headache type- Primary documented in this encounter [employer] Phone: Evaluation note Note Date & Type Note Facility Evaluation note Diagnosis Viral URI with cough- Primary Acute upper respiratory infections of unspecified site Tension headache documented in this encounter [facility] Discharge instructions Attachments Note Date & Type Note Facility Hospital Discharge instructions The following attachments cannot be sent through Care Everywhere.Headache ([place] Korean)documented in this encounter [employer] Phone: Advance Directives No Advanced Directives Records FoundDocuments on File Type Date Recorded 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 ACP-Advance Directive 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-Power of Provider 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 Summary Purpose Family History No Family History Records FoundNo Family History Records FoundNo Family History Records Found Additional Source Comments Reason for Visit (unrecogniz ed section and content) Reason Comments Headache GOLDBERG x4 days Reason Comments Headache sx x 1 month, last f ew days patient states he has been dizzy when he stands and that his eye hurt when he looks around Rhinitis Nasal Congestion Ordered Prescriptions (unrec ognized section and content) Prescription Sig Dispensed Refills Start Date End Da te ketorolac (TORADOL) 10 MG tablet Take 1 tablet by mouth every 6 hours as needed for Pain 20 tablet 0 09/11/2021 Scheduled Active and Recently Administ ered Medications (unrecognized section and content) Medication Order 09/09/2021 09/10/2021 09/11/2021 0.9 % sodium chloride bolus (COMPLETED) 1,000 mL (6.49 mL/kg), IntraVENous, at 500 mL/hr, Administer over 2 Hours, ONCE, On 09/11/21 at 1017, For 1 dose 1022 (New Bag - Prov ider: Lizett Hudson RN)1207 (Stopped - Provider: Lizett Hudson RN) diphenhydrAMINE (BENADRYL) injection 25 mg (COMPLETED) 25 mg, IntraVENous, ONCE, On 09/11/21 at 1017, For 1 dose 1022 (Given - Provid er: Lizett Hudson RN) ketorolac (TORADOL) injection 30 mg (COMPLETED) 30 mg, IntraVENous, ONCE, On 09/11/21 at 1017, For 1 dose, Do not administer for more than 5 days. 1023 (Given - Provid er: Lizett Hudson RN) metoclopramide (REGLAN) injection 10 mg (COMPLETED) 10 mg, IntraVENous, ONCE, On 09/11/21 at 1017, For 1 dose 1023 (Given - Provid er: Lizett Hudson RN) (unrecognized sect ion and content) No Status Records FoundNo Status Records FoundNo Status Records Found INFORMATION SOURCE (unrecogn ized section and content) DATE CREATED AUTHOR 09/12/2021 [facility] DATE CREATED AUTHOR AUTHOR'S ORGANIZ ATION 06/18/2022 [facility] DATE CREATED AUTHOR AUTHOR'S ORGANIZ ATION 04/01/2023 [facility] Source Comments (unrecognize d section and content) In the event this informatio n is protected by the Federal Confidentiality of Alcohol and Drug Abuse Patient Records regulations: The Federal rules restrict any use of the information to criminally investigate or prosecute any alcohol or drug abuse patient.[facility] FOR RECORDS PERTAINING TO PATIENTS WHO ARE OR HAVE BEEN ENROLLED IN A CHEMICAL DEPENDENCY/SUBSTANCEABUSE PROGRAM, SOME INFORMATION MAY BE OMITTED. This clinical summary was aggregated from multiple sources. Caution should be exercised in using it in the provision of clinical care. This summary normalizes information from multiple sources, and as a consequence, information in this document may materially change the coding, format and clinical context of patient data. In addition, data may be omitted in some cases. CLINICAL DECISIONS SHOULD BE BASED ON THE PRIMARY CLINICAL RECORDS. [facility] [facility]. provides no warranty or guarantee of the accuracy or completeness of information in this document.
[2024-08-16 00:55] VITALS: PULSE 54
--- NOTE | 2024-08-16 00:56 | XR_ITS ---
The [place] [id number] Patient Name: KERLINE ROBBINS MRN: [id number] date: 1995 Sex: M Assigned Patient Location: ER Current Patient Location: ER Accession/Order Number: [id number] Exam Date: 08/16/2024 01:15 Report Date: 08/16/2024 02:35 At the request of: MIHAI BYRNES Procedure: XR chest 1V EXAM: XR chest 1V HISTORY: chest pain COMPARISON: Correlation is made with CT abdomen and pelvis examination of the same date. TECHNIQUE: One view of the chest was obtained. FINDINGS: The cardiac silhouette is normal in size. There is a calcified granuloma in the left lung base. Otherwise, the lungs are clear. There is no significant pneumothorax or pleural effusion. No acute osseous abnormality is seen. XR/XR chest 1V IMPRESSION: 1. No acute cardiopulmonary abnormality. Electronically authenticated by: Lay MCKEE Date: 08/16/2024 02:35
--- NOTE | 2024-08-16 00:56 | CT_ITS ---
The [address] [address] Patient Name: KERLINE ROBBINS MRN: [id number] date: 1995 Sex: M Assigned Patient Location: ER Current Patient Location: ER Accession/Order Number: [id number] Exam Date: 08/16/2024 01:15 Report Date: 08/16/2024 02:40 At the request of: MIHAI BYRNES Procedure: CT abdomen pelvis w con EXAM: CT abdomen pelvis w con HISTORY: epigastric pain COMPARISON: None. TECHNIQUE: Axial CT images through the abdomen and pelvis were obtained with coronal and sagittal reformats. Dose reduction techniques were achieved by using automated exposure control and/or adjustment of mA and/or kV according to patient size and/or use of iterative reconstruction technique. FINDINGS: There is a calcified granuloma in the lingular base. Abdomen: The liver and spleen enhance homogeneously without focal lesion. There is no intra or extrahepatic biliary duct dilatation. The gallbladder is unremarkable. The pancreas, adrenal glands, kidneys, and bowel loops, including the appendix, are unremarkable. There is no mesenteric or retroperitoneal lymphadenopathy. Pelvis: The bladder and rectum are unremarkable. There is no iliac or inguinal lymphadenopathy. Bone windows show no aggressive osseous lesions. CT/CT abdomen pelvis w con IMPRESSION: 1. No specific etiology identified to explain the patient's abdominal pain. 2. Normal appendix. Electronically authenticated by: Lay MCKEE Date: 08/16/2024 02:40
--- NOTE | 2024-08-16 00:58 | ED_ITS ---
HPI - Abdominal Pain General Chief Complaint: Abdominal Pain Stated Complaint: abd pain dizziness Time Seen by Provider: 08/16/24 00:56 Source: patient Mode of arrival: walk-in Limitations: no limitations History of Present Illness HPI narrative: presents complaining of epigastric pain. started a couple of hours ago. diaphoretic and sweaty. no dyspnea. states similar episode about 3 weeks ago. It resolved spontaneously. This time is more painful and he came in Related Data Home Medications ?Medication ?Instructions ?Recorded ?Confirmed No Known Home Medications 08/16/24 08/16/24 Allergies Allergy/AdvReac Type Severity Reaction Status Date / Time acetaminophen AdvReac Intermediate HIVES Verified 08/16/24 00:44 [From Tylenol-Codeine #3] codeine AdvReac Intermediate HIVES Verified 08/16/24 00:44 [From Tylenol-Codeine #3] Review of Systems ROS Status of ROS 10 or more systems reviewed and unremark able except as noted in history and below PFSH PFSH Social History Little interest or pleasure in doing things: not at all Feeling down, depressed, or hopeless: not at all Exam Constitutional Vital Signs, click to edit/add: Last Vital Signs Temp 97.8 F 08/16/24 00:37 Pulse 52 L 08/16/24 00:37 Resp 24 H 08/16/24 00:37 BP 145/89 H 08/16/24 00:37 Pulse Ox 100 08/16/24 00:37 O2 Del Method Room Air 08/16/24 00:37 Common normals: average body habitus, oriented x3, no limitations and healthy appearing General appearance: in distress [facility] Common normals: normocephalic and head/scalp atraumatic Eye Common normals: EOMs intact bilaterally and conjunctivae normal Respiratory Common normals: normal respiratory effort, no retractions, no use of accessory muscles and clear to auscultation bilaterally Cardio Common normals: S1 normal heart sound and S2 normal heart sound Rate: bradycardic GI Other: epigastric tenderness Extremity Common normals: normal to inspection and full ROM Neuro Common normals: oriented x3, CN's II-XII intact bilaterally, moves all extremities, no focal motor deficits and no sensory deficits noted Psych Appearance: grossly normal Course Vital Signs Vital signs: Vital Signs Temperature 97.8 F 08/16/24 00:37 Pulse Rate 52 L 08/16/24 00:37 Respiratory Rate 24 H 08/16/24 00:37 Blood Pressure 145/89 H 08/16/24 00:37 Pulse Oximetry 100 08/16/24 00:37 Oxygen Delivery Method Room Air 08/16/24 00:37 Temperature 97.8 F 08/16/24 00:37 Pulse Rate 52 L 08/16/24 00:37 Respiratory Rate 24 H 08/16/24 00:37 Blood Pressure 145/89 H 08/16/24 00:37 Pulse Oximetry 100 08/16/24 00:37 Oxygen Delivery Method Room Air 08/16/24 00:37 MDM - Abdominal Pain MDM Narrative Medical decision making narrative: patient presents with acute onset of epigastric pain. Has epigastric tenderness. Serial troponin neg x 2. cxray neg. CT abdomen neg. Patient improved after GI cocktail. LFTs WNL. discharged with prescription for carafate and advised to followup with his doctor for recheck Lab Data Labs: Lab Results 08/16/24 08/16/24 Range/Units 00:54 02:56 WBC 9.4 (4.0-11.0) 10^3/uL RBC 4.68 L (4.70-6.10) 10^6/uL Hgb 14.5 (14.0-18.0) g/dL Hct 42.8 (42.0-54.0) % MCV 91.5 (80.0-94.0) fL MCH 31.0 (25.9-34.0) pg MCHC 33.9 (29.9-35.2) g/dL RDW 13.0 (11.0-15.0) % Plt Count 348 (150-450) 10^3/uL MPV 9.5 (9.5-13.5) fL Neut % (Auto) 50.0 (43.0-75.0) % Lymph % (Auto) 35.9 (20.5-60.0) % [place] % (Auto) 9.6 (1.7-12.0) % Eos % (Auto) 3.7 (0.9-7.0) % Baso % (Auto) 0.7 (0.2-2.0) % Neut # (Auto) 4.7 (1.4-6.5) 10^3/uL Lymph # (Auto) 3.4 (1.2-3.8) 10^3/uL [place] # (Auto) 0.9 H (0.3-0.8) 10^3/uL Eos # (Auto) 0.4 (0.0-0.7) 10^3/uL Baso # (Auto) 0.1 (0.0-0.1) 10^3/uL Abs Immat Gran (auto) 0.01 (0.00-0.03) 10^3/uL Imm/Tot Granulo (auto) 0.1 (0.0-0.5) % Sodium 137 (136-145) mmol/L Potassium 4.0 (3.5-5.1) mmol/L Chloride 101 (98-107) mmol/L Carbon Dioxide 32.8 H (21.0-32.0) mmol/L Anion Gap 7.2 BUN 15.0 (7.0-18.0) mg/dL Creatinine 1.25 (0.70-1.30) mg/dL Est GFR ( Amer) >60 (>=60) Est GFR (Non-Af Amer) >60 (>=60) BUN/Creatinine Ratio 12.0 Glucose 102 (74-106) mg/dL Lactate 0.6 (0.4-2.0) mmol/L Calcium 9.4 (8.5-10.1) mg/dL Total Bilirubin 0.3 (0.2-1.0) mg/dL AST 14 L (15-37) U/L ALT 19 (16-63) U/L Alkaline Phosphatase 80 (46-116) U/L Troponin I High Sens <4.0 L <4.0 L (4.0-76.1) pg/mL Total Protein 6.6 (6.4-8.2) g/dL Albumin 3.4 (3.4-5.0) g/dL Globulin 3.2 g/dL Albumin/Globulin Ratio 1.1 Lipase 39.0 (16.0-77.0) U/L Imaging Data Chest x-ray: Radiologist's impression: ITS Impressions Abdomen/Pelvis CT 08/16/24 00:56 IMPRESSION: 1. No specific etiology identified to explain the patient's abdominal pain. 2. Normal appendix. Electronically authenticated by: Lay MCKEE Date: 08/16/2024 02:40 Chest X-Ray 08/16/24 00:56 IMPRESSION: 1. No acute cardiopulmonary abnormality. Electronically authenticated by: Lay MCKEE Date: 08/16/2024 02:35 Discharge Plan Discharge Chief Complaint: Abdominal Pain Clinical Impression: Abdominal pain Patient Disposition: Home, Self-Care Prescriptions / Home Meds: No Action No Known Home Medications Print Language: Wolof Instructions: Abdominal Pain (ED) Additional Instructions: follow up with your doctor in the next couple of days for recheck Referrals: Physician,Non-Staff, MD [Primary Care Provider] - 1 week
[2024-08-16] MEDS: 0.9 % SODIUM CHLORIDE 1,000 ML 999 ML IV (01:05)
[2024-08-16 01:07] LABS: Basophils Absolute Auto 0.1 10^3/uL (0.0-0.1); Basophils Percent Auto 0.7 % (0.2-2.0); Eosinophils Absolute Auto 0.4 10^3/uL (0.0-0.7); Eosinophils Percent Auto 3.7 % (0.9-7.0); Hematocrit 42.8 % (42.0-54.0); Hemoglobin 14.5 g/dL (14.0-18.0); Immature Granulocytes Abs Auto 0.01 10^3/uL (0.00-0.03); Immature Granulocytes Pct Auto 0.1 % (0.0-0.5); Lymphocytes Absolute Auto 3.4 10^3/uL (1.2-3.8); Lymphocytes Percent Auto 35.9 % (20.5-60.0); Mean Corpuscular HGB Conc 33.9 g/dL (29.9-35.2); Mean Corpuscular Volume 91.5 fL (80.0-94.0); Mean Platelet Volume 9.5 fL (9.5-13.5); Monocytes Absolute Auto 0.9 10^3/uL (0.3-0.8); Monocytes Percent Auto 9.6 % (1.7-12.0); Neutrophils Absolute Auto 4.7 10^3/uL (1.4-6.5); Platelet Count 348 10^3/uL (150-450); Red Blood Count 4.68 10^6/uL (4.70-6.10); White Blood Count 9.4 10^3/uL (4.0-11.0)
[2024-08-16 01:22] LABS: Alanine Aminotransferase 19 U/L (16-63); Albumin Globulin Ratio 1.1; Albumin Level 3.4 g/dL (3.4-5.0); Alkaline Phosphatase 80 U/L (46-116); Anion Gap 7.2; Aspartate Amino Transferase 14 U/L (15-37); Bilirubin Total 0.3 mg/dL (0.2-1.0); Calcium 9.4 mg/dL (8.5-10.1); Carbon Dioxide 32.8 mmol/L (21.0-32.0); Chloride 101 mmol/L (98-107); Estimated GFR (African America >60 (>=60); Estimated GFR (Non-African Ame >60 (>=60); Globulin 3.2 g/dL; Glucose 102 mg/dL (74-106); Lactate/Lactic Acid 0.6 mmol/L (0.4-2.0); Sodium 137 mmol/L (136-145); Total Protein 6.6 g/dL (6.4-8.2); Troponin I High Sensitivity <4.0 pg/mL (4.0-76.1)
[2024-08-16] MEDS: KETOROLAC TROMETHAMINE 30 MG/ML VIAL IVP (01:31)
[2024-08-16] MEDS: ONDANSETRON PF 4 MG/2 ML VIAL IV (01:38)
--- NOTE | 2024-08-16 02:00 | ECG_ITS ---
The [facility] Test Date: 2024-08-16 Pat Name: KERLINE ROBBINS Department: Room: - Gender: Male Manager Android: : 1995 Requested By: Order Number: [id number] Reading MD: ECHO CARRENO Measurements Intervals [place] Rate: 51 P: -13 MD: 126 QRS: 38 QRSD: 90 T: 2 QT: 434 QTc: 412 Interpretive Statements 1100 Sinus bradycardia 9110 normal ECG No previous ECG available for comparison Electronically Signed On 08-16-2024 6:53:37 EDT by ECHO CARRENO
[2024-08-16] MEDS: lidocaine HCL 15 ML, MAG HYDROX/ALUMINUM HYD/SIMETH 30 ML, HYOSCYAMINE SULFATE 0.25 MG PO (03:04)
[2024-08-16 03:28] LABS: Troponin I High Sensitivity <4.0 pg/mL (4.0-76.1)
[2024-08-16 04:13] VITALS: BP 130/66; PULSE 54; O2SAT 97
== END 2024-08-16 04:26 | disposition home or self-care (01) ==
PROVIDERS: Emergency Provider Internal Medicine
DX: R10.9 Unspecified abdominal pain (principal)
CPT/HCPCS: 36415; 71045; 74177; 80053; 83605; 83690; 84484; 85025; 93005; 96374; 96375; 99285; J1885; J2405; Q9967

== ENCOUNTER 2024-09-13 14:50 | Emergency (ER) | payer SELFPAY ==
[2024-09-13 15:09] VITALS: PULSE 60; TEMP 36.6; O2SAT 100; BMI 42.0
--- NOTE | 2024-09-13 15:14 | XR_ITS ---
The [address] [address] Patient Name: KERLINE ROBBINS MRN: [id number] date: 1995 Sex: M Assigned Patient Location: ER Current Patient Location: ED.MAIN Accession/Order Number: [id number] Exam Date: 09/13/2024 15:30 Report Date: 09/13/2024 16:07 At the request of: HEBER GONZALEZ Procedure: XR knee LT 4V EXAM: XR knee LT 4V HISTORY: pain COMPARISON: None. TECHNIQUE: AP, oblique, lateral, sunrise view left knee. FINDINGS: Fracture or healing fracture. Small sclerotic density proximal tibia below the felt to be incidental bone island. No suspicious focal bone lesion.. No joint effusion. Articular surfaces smooth, normal joint spaces. Normal-appearing patella and Patellofemoral alignment. XR/XR knee LT 4V IMPRESSION: Negative left knee. No fracture or joint effusion. Electronically authenticated by: TIMMY KENDALL Date: 09/13/2024 16:07
--- OUTSIDE RECORDS SUMMARY | 2024-09-13 15:29 | XMS_ITS | CCD ---
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 9.9 mL 0 10/03/2021 Active Comment on above: Use 1 [place] in each nostril once daily. meclizine hydrochloride [...] developed and its performance characteristics determined by [facility]'s [facility]ology and Laboratory Medicine [place]. This test has been authorized by FDA under an Emergency Use Authorization (EUA). This test has been validated in accordance with the FDA's Guidance Document Policy for Diagnostics Testing in Laboratories Certified to Perform High Complexity Testing under CLIA prior to Emergency use Authorization for Coronavirus Disease 2019 during the Public Health Emergency issued on January 15, 2020. Test performed by [facility], [facility] [place], [facility] [place] [address]. Normal [facility] Comment on above: Performed By: #### 9 [id number] #### [facility] CLIA [id number] [address] [place] [address] OF [facility] CNPNon 10-04-2021 CNPN Telephone (EXPLOR) KERLINE MORTON ([id number]) 1995 M Date Time Provider Department 10/04/21 MAREILOS CAMPBELL During your visit today, we recorded the following information about you: Marielos Campbell APRN.ENVIRONMENTAL SCIENCE PROFESSOR 10/04/2021 5:28 PM Signed Pt called to notify of positive covid result. Pt is currently isolating. Is managing symptoms with currently recommended therapies. Pt instructed to got to ED for any SOB, chest pain or uncontrolled fever. All questions answered Marielos Campbell APRN.ENVIRONMENTAL SCIENCE PROFESSOR Allergies As of Date: 10/04/2021 Noted Allergy Reaction ACETAMINOPHEN-CODEIN E 10/03/2021 7 - Swelling Date Reviewed: 10/03/2021 Reviewed by: Kati Yi LPN - Fully Assessed Reason for Visit: Results [95] Prescriptions as of 10/04/2021 - fluticasone (FLONASE ALLERGY RELIEF) 50 mcg/actuation nasal spray Use 1 [place] in each nostril once daily. - meclizine (ANTIVERT) 25 mg tab Take 1 tablet by mouth every 6 hours as needed (for dizziness). Problem List As Of Date: 10/04/2021 (None) Encounter Status:Closed by MARIELOS CAMPBELL on 10/04/21 Normal [facility] COVID w FLU A+B Routon 10-04 Influenza A PCR Negative Normal [facility] Comment on above: Performed By: #### C OVFLU #### [place] [address] Influenza B PCR Negative Normal [facility] Comment on above: Performed By: #### C OVFLU #### [place] [address] SARS-CoV-2 (COVID-19) RNA FRANCISCO+probe Ql (Unsp spec) UPPER RESPIRATORY TRACT SWAB Normal [facility] Comment on above: Performed By: #### C OVFLU #### [place] [address] SARS-CoV-2 (COVID-19) RNA FRANCISCO+probe Ql (Unsp spec) Positive for COVID19 (SARS CoV2) by RT-PCR or equivalent method. Critically abnormal Negative for COVID19 (SARS CoV2) by RT-PCR or equivalent method. [facility] Comment on above: Result Comment: This test was developed and its performance characteristics determined by [facility]'s [facility] Pathology and Laboratory Medicine [place]. This test has been authorized by FDA under an Emergency Use Authorization (EUA). This test has been validated in accordance with the FDA's Guidance Document Policy for Diagnostics Testing in Laboratories Certified to Perform High Complexity Testing under CLIA prior to Emergency use Authorization for Coronavirus Disease 2019 during the Public Health Emergency issued on January 15, 2020. Test performed by [facility], [facility] Pathology and Laboratory Medicine [place], [address] [place] [address]. Performed By: #### C OVFLU #### [place] [address] Lizz 10-03-2021 CNOV Office Visit (EXPLOR) KERLINE MORTON ([id number]) 1995 M Date Time Provider Department 10/03/21 [...] tenderness or frontal sinus tenderness. Mouth/Throat: Lips: [place]. Mouth: Mucous membranes are moist. Tongue: Tongue [...] pale. Finding (more content not included)... Normal [facility] CT HEAD WO CONTRASTon 2020 CT HEAD [...] Christ Alas MD 09/11/[address] [facility] CT HEAD WO CONTRASTOrdered B y: Avery Nova on 09-11-2021 Impression: [Negative CT of the brain]. All CT scans at this facility use dose modulation, iterative reconstruction, and/or weight based dosing when appropriate to reduce radiation dose to as low as reasonably achievable. [facility] Work Phone: CT Brain. Contrast medium: without [...] mastoid air cells: Normal. Visualized Orbits: Normal. [employer] Work Phone: Roney, po Incoming Radiant Results From [employer] - 09/11/2021 10:[address] Brain. [...] dose to as low as reasonably achievable. [employer] Work Phone: [facility] Work Phone: Vital Signs Date Time Vital Sign Value Performing Clinician Facility 10-03-2021 18:06-0500 Body temperature 98.01 [degF] Trinidad Virgen APRN.ENVIRONMENTAL SCIENCE PROFESSOR Work Phone: [facility] 10-03-2021 18:06-0500 Diastolic blood pressure 75 mm[Hg] Trinidad Virgen APRN.ENVIRONMENTAL SCIENCE PROFESSOR Work Phone: [facility] 10-03-2021 18:06-0500 Heart rate 98 /min Trinidad Virgen APRN.ENVIRONMENTAL SCIENCE PROFESSOR Work Phone: [facility] 10-03-2021 18:06-0500 SaO2% (BldA) [Mass fraction] 100 % Trinidad Virgen APRN.ENVIRONMENTAL SCIENCE PROFESSOR Work Phone: [facility] 10-03-2021 18:06-0500 Systolic blood pressure 131 mm[Hg] Trinidad Virgen APRN.ENVIRONMENTAL SCIENCE PROFESSOR Work Phone: [facility] 09-11-2021 11:00-0400 Diastolic blood pressure 71 mm[Hg] Avery Nova MD Work Phone: [employer] Work Phone: 09-11-2021 11:00-0400 SaO2% (BldA) [Mass fraction] 98 % Avery Nova MD Work Phone: [facility] Work Phone: 09-11-2021 11:00-0400 Systolic blood pressure 128 mm[Hg] Avery Nova MD Work Phone: [facility] Work Phone: 09-11-2021 10:43-0400 Heart rate 71 /min Avery Nova MD Work Phone: [facility] Work Phone: 09-11-2021 10:43-0400 Respiratory rate 18 /min Avery Nova MD Work Phone: [facility] Work Phone: 09-11-2021 09:49-0400 Body height 188 cm Avery Nova MD Work Phone: [facility] Work Phone: 09-11-2021 09:49-0400 Body mass index (BMI) [Ratio] 43.65 kg/m2 Avery Nova MD Work Phone: [facility] Work Phone: 09-11-2021 09:49-0400 Body temperature 97 [degF] Avery Nova MD Work Phone: [facility] Work Phone: 09-11-2021 09:49-0400 Body weight 154.22 kg Avery Nova MD Work Phone: [employer] Work Phone: Encounters Encounter Date Encounter Type Care Provider Facility Start: 10-09-2022 End: 04-12-2023 [facility] Start: 10-03-2021 End: 10-03-2021 Patient encounter procedure Trinidad Virgen NASREEN.ENVIRONMENTAL SCIENCE PROFESSOR Work Phone: [facility] Comment on above: Viral URI with cough (Primary Dx); Tension headache Start: 09-11-2021 End: 09-11-2021 Emergency department patient visit AVERY NOVA [facility] Start: 09-11-2021 End: 09-11-2021 Emergency department patient visit Avery Nova MD Work Phone: [facility] Comment on above: Nonintractable episo dic headache, unspecified headache type (Primary Dx) Procedures Date Procedure Procedure Detail Performing Clinician Start: 09-11-2021 Ct head/brain w/o contrast material Avery Nova MD Work Phone: Plan of Treatment Date Care Activity Detail Author Start: 07-18-2021 Influenza vaccination [facility] Start: 2015 DTaP/Tdap/Td vaccine (1 - Tdap) DTaP/Tdap/Td vaccine (1 - Tdap) [facility] Work Phone: Start: 2015 Urine microalbumin profile DTAP,TDAP,TD (1 - Tdap) [facility] Start: 2014 HEPATITIS C SCREENING HEPATITIS C SC NHUNG [facility] Start: 2014 HIV SCREENING HIV SCREENING [facility] Start: 2011 HIV screening HIV screen [facility] Work Phone: Start: 2008 Adult depression screening assessment DEPRESSION SCREENING [facility] Start: 2008 COVID-19 Vaccine (1) COVID-19 Vaccin e (1) [facility] Work Phone: Start: 2007 HPV vaccine (1 - Mal e 2-dose series) HPV vaccine (1 - Male 2-dose series) [facility] Start: 2001 COVID-19 VACCINE (1) COVID-19 VACCIN E (1) [facility] Start: 1997 Varicella vaccine (1 of 2 - 2-dose childhood series) Varicella vaccine (1 of 2 - 2-dose childhood series) [employer] Phone: Start: 1996 Hepatitis C screening Hepatitis C sc traci [employer] Phone: COVID WITH FLUA+B, ROUTINE COVID WITH FLUA+B, ROUTINE Microbiology Routine Viral URI with cough Ordered: 10/03/2021 [facility] Work Phone: Comment on above: Ordered: 10/03/2021 Payers Date Payer Category Payer Private Health Insurance [id number] 2022 Unknown [id number] 2021 Unknown [employer] BLUE CARD PPO OOS [id number] 2021-Present [phone] [address] [place] [address] PPO [id number] 2021 Private Health Insurance [id number] 1996 Unknown [id number] Social History Date Type Detail Facility Start: 09-11-2021 Tobacco smoking status NHIS Current every day smoker [employer] Phone: History of tobacco use [facility] Start: 09-11-2021 Tobacco use and exposure Never used [facility] Start: 09-11-2021 Alcohol intake Ex-drinker (finding) [employer] Phone: Start: 1995 Sex Assigned At Not on file [facility] [employer] Phone: Exposure to SARS-CoV-2 (event) Not sure [facility] Tobacco smoking status NHIS Tobacco smoking consumption unknown [facility] Progress note 10-03-2021 Note Date & Type Note Facility 10-03-2021 Note HNO ID: [id number] Author: Trinidad Virgen APRN.ENVIRONMENTAL SCIENCE PROFESSOR Service: ? Author Type: Nurse Practitioner Type: [...] tenderness or frontal sinus tenderness. Mouth/Throat: Lips: [place]. Mouth: Mucous membranes are moist. Tongue: Tongue [...] is intact. Coor (more content not included)... [facility] Instructions 10-03-2021 Patient Instructions Note Date & Type Note Facility 10-03-2021 Instructions Trinidad Virgen APRN.LIZBET - 10/03/2021 6:36 PM EST 1. Viral URI with cough - COVID WITH FLUA+B, ROUTINE Will get results in 24-48 hours Start home isolation Results will be released to [facility] immediately and may come back outside of office hours -rest and increased fluid intake -tylenol or ibuprofen as directed -humidification -vicks or nasal saline as directed - fluticasone (FLONASE ALLERGY RELIEF) 50 mcg/actuation nasal spray; Use 1 [place] in each nostril once daily. Dispense: 9.9 [...] to pass out documented in this encounter [facility] History of Present illness Narrative 10-03-2021 [...] tenderness or frontal sinus tenderness. Mouth/Throat: Lips: [place]. Mouth: Mucous membranes are moist. Tongue: Tongue [...] home isolation Results will be released to [facility] immediately and may come back outside of office hours -rest and increased fluid intake -tylenol or ibuprofen as directed -humidification -vicks or nasal saline as directed - fluticasone (FLONASE ALLERGY RELIEF) 50 mcg/actuation nasal spray; Use 1 [place] in each nostril once daily. Dispense: 9.9 [...] and agrees with treatment plan Trinidad Virgen APRN.ENVIRONMENTAL SCIENCE PROFESSOR documented in this encounter [facility] Evaluation note Note Date & Type Note Facility Evaluation note Diagnosis Nonintractable episodic headache, unspecified headache type- Primary documented in this encounter [employer] Phone: Evaluation note Note Date & Type Note Facility Evaluation note Diagnosis Viral URI with cough- Primary Acute upper respiratory infections of unspecified site Tension headache documented in this encounter [facility] Discharge instructions Attachments Note Date & Type Note Facility Hospital Discharge instructions The following attachments cannot be sent through Care Everywhere.Headache (Belarusian)documented in this encounter [employer] Phone: Advance Directives No Advanced Directives Records FoundDocuments on File Type Date Recorded 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 DATE CREATED AUTHOR AUTHOR'S ORGANIZ ATION 06/18/2022 [facility] DATE CREATED AUTHOR AUTHOR'S ORGANIZ ATION 04/01/[address] [facility] Source Comments (unrecognize d section and content) In the event this informatio n is protected by the Federal Confidentiality of Alcohol and Drug Abuse Patient Records regulations: The Federal rules restrict any use of the information to criminally investigate or prosecute any alcohol or drug abuse patient.[facility] FOR RECORDS PERTAINING TO PATIENTS WHO [...] BE BASED ON THE PRIMARY CLINICAL RECORDS. [employer] [facility]. provides no warranty or guarantee of the accuracy or completeness of information in this document.
--- NOTE | 2024-09-13 17:27 | ED_ITS ---
HPI HPI - Extremity Injury (Lower) General Chief Complaint: Extremity Injury, Lower Stated Complaint: LOWER EXTREMITY INJURY Time Seen by Provider: 09/13/24 16:58 Source: patient and family Mode of arrival: walk-in Limitations: no limitations History of Present Illness HPI Narrative: Patient is a 29-year-old male who presents to the emergency department for continued pain and injury to the left knee. He states 3 days ago he believes that he dislocated his knee. States he was in a squatted position when he twisted and stood up and states that his knee popped out and his employer had to yank on his leg to straighten the knee back out. He has been using an [id number] knee brace. No falls or direct injury to the knee. No medications prior to arrival. He is able to ambulate Related Data Previous Rx's ?Medication ?Instructions ?Recorded methocarbamol 750 mg tablet 750 mg PO TID PRN pain #20 tabs 09/13/24 methylprednisolone 4 mg tablets in See Rx Instructions .Route 09/13/24 a dose pack (Medrol (Jim)) .COMPLEX #21 ea tramadol 50 mg tablet 50 mg PO Q4H PRN pain #15 tabs 09/13/24 Allergies Allergy/AdvReac Type Severity Reaction Status Date / Time acetaminophen (From AdvReac Intermediate HIVES Verified 08/16/24 00:44 Tylenol-Codeine #3) codeine (From AdvReac Intermediate HIVES Verified 08/16/24 00:44 Tylenol-Codeine #3) Opioid HPI Opioid Management Most Recent Pain and Opioid Data: Last Pain Scale 7 08/16/24 02:20 08/16/24 Review of Systems ROS Constitutional Denies: fever or chills Ears, nose, mouth, and throat Denies: throat pain Respiratory Denies: shortness of breath Gastrointestinal Denies: nausea or vomiting Musculoskeletal Reports: extremity pain, joint pain and limited range of motion; Denies: back pain or neck pain Integumentary/Breast Denies: rash Neurological Denies: numbness in extremities or weakness in extremities Allergic/Immunologic Denies: hives PFSH PFS Social History Little interest or pleasure in doing things: not at all Feeling down, depressed, or hopeless: not at all Exam Narrative Exam Narrative: Gen.: Awake, alert, in no distress Head: Normocephalic, atraumatic ENT: Moist mucous membranes Respiratory: No respiratory distress Extremities: Pain with flexion and extension at the left knee, patella stable. No laxity. No posterior tenderness of the left knee. Calves are soft and nontender. Diffusely tender in the anterolateral left knee with no palpable joint effusion Psych: Normal mood and affect Neuro: No focal neuro deficit Skin: Warm, dry, intact Constitutional Vital Signs, click to edit/add: Last Vital Signs Temp 98 F 09/13/24 15:09 Pulse 60 09/13/24 15:09 Resp 18 09/13/24 15:09 Pulse Ox 100 09/13/24 15:09 O2 Del Method Room Air 09/13/24 15:09 Course Vital Signs Vital signs: Vital Signs Temperature 98 F 09/13/24 15:09 Pulse Rate 60 09/13/24 15:09 Respiratory Rate 18 09/13/24 15:09 Pulse Oximetry 100 09/13/24 15:09 Oxygen Delivery Method Room Air 09/13/24 15:09 Temperature 98 F 09/13/24 15:09 Pulse Rate 60 09/13/24 15:09 Respiratory Rate 18 09/13/24 15:09 Pulse Oximetry 100 09/13/24 15:09 Oxygen Delivery Method Room Air 09/13/24 15:09 MDM - Extremity Injury (Lower) MDM Narrative Medical decision making narrative: X-rays with no evidence of acute process. Patient placed in a knee immobilizer at his request. He is neurovascularly intact. He declined crutches. He was given PCP and orthopedic appointment. Return to the emergency department if symptoms change or worsen. Rest, ice, elevate SUPERVISED APC VISIT, PHYSICIAN ATTESTATION: Based on the medical record the care appears appropriate. ? Medical Records Attestation: I reviewed the patient's medical records. Imaging Data XR knee: Attestation: I have reviewed the pertinent imaging results. Radiologist's impression: ITS Impressions Knee X-Ray 09/13/24 15:14 IMPRESSION: Negative left knee. No fracture or joint effusion. Electronically authenticated by: TIMMY KENDALL Date: 09/13/2024 16:07 Discharge Plan Discharge Chief Complaint: Extremity Injury, Lower Clinical Impression: Left knee pain, Soft tissue injury of left knee Patient Disposition: Home, Self-Care Time of Disposition Decision: 17:23 Condition: Good Prescriptions / Home Meds: New methocarbamol 750 mg tablet 750 mg PO TID PRN (Reason: pain) Qty: 20 0RF methylprednisolone [Medrol (Jim)] 4 mg tablets,dose pack See Rx Instructions .ROUTE .COMPLEX Qty: 21 0RF Rx Instructions: Taper as directed tramadol 50 mg tablet 50 mg PO Q4H PRN (Reason: pain) Qty: 15 0RF Print Language: Kinyarwanda Instructions: Knee Pain (ED) Referrals: Physician,Non-Staff, [Primary Care Provider] - 1 week Paxton Castillo MD [Physician] - 09/20/24 11:30 am Discharge Date/Time: 09/13/24 17:38
[2024-09-13] MEDS: KETOROLAC TROMETHAMINE 10 MG TABLET PO (17:29)
== END 2024-09-13 17:38 | disposition home or self-care (01) ==
PROVIDERS: Emergency Provider Emergency Medicine
DX: S89.82XA Other specified injuries of left lower leg, initial encounter (principal); M25.562 Pain in left knee; X50.1XXA Overexertion from prolonged static or awkward postures, initial encounter
CPT/HCPCS: 73564; 99284

== ENCOUNTER 2024-10-22 18:40 | Emergency (ER) | payer MEDICAID, SELFPAY ==
[2024-10-22 18:45] VITALS: BP 135/88; PULSE 68; TEMP 36.4; O2SAT 99; BMI 36.3
--- NOTE | 2024-10-22 19:14 | ED.ABDPAIN1 ---
HPI - Abdominal Pain General Chief Complaint: Abdominal Pain Stated Complaint: cp, abdominal pain Time Seen by Provider: 10/22/24 19:13 Source: patient Mode of arrival: walk-in History of Present Illness HPI narrative: Patient is a 21 male who presents emergency room with his secondary to epigastric pain. The pain began around 11 AM today. The pain is a 10 out of 10 and it feels like a balloon is expanding with no room . The patient stated that the pain radiates to his subcostal area to his umbilicus. He states that he does not have any pain in his back. Unknown what makes the pain worse or better. The patient vomited twice since 11 AM most recently 1 hour ago. Patient indicates that his last meal was at 9 AM [place] but he has been able to hold down water all day. There has been no evidence of blood or bile present. He has not had any fever or chills. Patient states that he has not had any sick contacts or recent travel. He has no urinary symptoms. He has never had any abdominal surgeries before. No history of bowel obstructions. No urinary symptoms. No testicular pain. No flank pain. No trauma. Related Data Previous Rx's ?Medication ?Instructions ?Recorded dicyclomine 20 mg tablet 20 mg PO QID pain #14 tabs 10/22/24 ondansetron 4 mg disintegrating 4 mg PO Q8H 24 hours #3 tabs 10/22/24 tablet Allergies Allergy/AdvReac Type Severity Reaction Status Date / Time acetaminophen (From AdvReac Intermediate HIVES Verified 10/22/24 18:45 Tylenol-Codeine #3) PFSH PFSH Social History Little interest or pleasure in doing things: not at all Feeling down, depressed, or hopeless: not at all Exam Constitutional Vital Signs, click to edit/add: Last Vital Signs Temp 97.6 F 10/22/24 18:45 Pulse 68 10/22/24 18:45 Resp 16 10/22/24 18:45 BP 135/88 10/22/24 18:45 Pulse Ox 99 10/22/24 18:45 O2 Del Method Room Air 10/22/24 18:45 Course Reevaluation(s) Reevaluation #1: Patient was reassessed. He indicates his pain is controlled. He is no longer nauseous. Patient states he feels stable enough to go home. Time: 21:24 Vital Signs Vital signs: Vital Signs Temperature 97.6 F 10/22/24 18:45 Pulse Rate 68 10/22/24 18:45 Respiratory Rate 16 10/22/24 18:45 Blood Pressure 135/88 10/22/24 18:45 Pulse Oximetry 99 10/22/24 18:45 Oxygen Delivery Method Room Air 10/22/24 18:45 Temperature 97.6 F 10/22/24 18:45 Pulse Rate 68 10/22/24 18:45 Respiratory Rate 16 10/22/24 18:45 Blood Pressure 135/88 10/22/24 18:45 Pulse Oximetry 99 10/22/24 18:45 Oxygen Delivery Method Room Air 10/22/24 18:45 MDM - Abdominal Pain Differential Diagnosis Differential diagnosis: Likely abdominal pain, acute appendicitis, constipation, gastroenteritis, pancreatitis and small bowel obstruction Medical Records Attestation: I reviewed the patient's medical records. Lab Data Attestation: I reviewed the patient's lab results. Labs: Lab Results 10/22/24 10/22/24 Range/Units 20:07 20:40 WBC 8.2 (4.0-11.0) 10^3/uL RBC 4.78 (4.70-6.10) 10^6/uL Hgb 14.8 (14.0-18.0) g/dL Hct 43.1 (42.0-54.0) % MCV 90.2 (80.0-94.0) fL MCH 31.0 (25.9-34.0) pg MCHC 34.3 (29.9-35.2) g/dL RDW 12.6 (11.0-15.0) % Plt Count 347 (150-450) 10^3/uL MPV 9.6 (9.5-13.5) fL Neut % (Auto) 74.4 (43.0-75.0) % Lymph % (Auto) 13.7 L (20.5-60.0) % [place] % (Auto) 9.3 (1.7-12.0) % Eos % (Auto) 1.7 (0.9-7.0) % Baso % (Auto) 0.7 (0.2-2.0) % Neut # (Auto) 6.1 (1.4-6.5) 10^3/uL Lymph # (Auto) 1.1 L (1.2-3.8) 10^3/uL [place] # (Auto) 0.8 (0.3-0.8) 10^3/uL Eos # (Auto) 0.1 (0.0-0.7) 10^3/uL Baso # (Auto) 0.1 (0.0-0.1) 10^3/uL Abs Immat Gran (auto) 0.02 (0.00-0.03) 10^3/uL Imm/Tot Granulo (auto) 0.2 (0.0-0.5) % Sodium 141 (136-145) mmol/L Potassium 3.6 (3.5-5.1) mmol/L Chloride 106 (98-107) mmol/L Carbon Dioxide 30.6 (21.0-32.0) mmol/L Anion Gap 8.0 BUN 11.0 (7.0-18.0) mg/dL Creatinine 1.07 (0.70-1.30) mg/dL Est GFR ( Amer) >60 (>=60 mL/min/1.73m^2) Est GFR (Non-Af Amer) >60 (>=60 mL/min/1.73m^2) BUN/Creatinine Ratio 10.3 Glucose 99 (74-106) mg/dL Calcium 8.8 (8.5-10.1) mg/dL Total Bilirubin 0.5 (0.2-1.0) mg/dL AST 17 (15-37) U/L ALT 21 (16-63) U/L Alkaline Phosphatase 81 (46-116) U/L Total Protein 6.7 (6.4-8.2) g/dL Albumin 3.4 (3.4-5.0) g/dL Globulin 3.3 g/dL Albumin/Globulin Ratio 1.0 Lipase 20.0 (16.0-77.0) U/L Urine Color Lt. yellow (YELLOW) Urine Clarity Clear (CLEAR) Urine pH 8.0 (5.0-9.0) Ur Specific [place] 1.010 (1.005-1.025) Urine Protein Negative (NEG/TRACE) mg/dL Urine Glucose (UA) Negative (NEGATIVE) mg/dL Urine Ketones Negative (NEGATIVE) mg/dL Urine Occult Blood Negative (NEGATIVE) Urine Nitrite Negative (NEGATIVE) Urine Bilirubin Negative (NEGATIVE) Urine Urobilinogen 1.0 (0.2-1.0) EU/dL Ur Leukocyte Esterase Negative (NEGATIVE) Smoking Cessation Patient Acknowledges Need for Cessation: Yes Discharge Plan Discharge Chief Complaint: Abdominal Pain Clinical Impression: Abdominal pain, Nausea & vomiting Patient Disposition: Home, Self-Care Time of Disposition Decision: 21:26 Condition: Good Prescriptions / Home Meds: New ondansetron 4 mg tablet,disintegrating 4 mg PO Q8H 1 Days Qty: 3 0RF dicyclomine 20 mg tablet 20 mg PO QID Qty: 14 0RF Print Language: [place] Instructions: Acute Nausea and Vomiting (ED), Abdominal Pain (ED) Additional Instructions: Return if you are unable to drink anything. Please begin with a clear liquid diet and then advance slowly as tolerated. Referrals: JULY HAWK [Primary Care Provider] - 1 week
[2024-10-22] MEDS: KETOROLAC TROMETHAMINE 30 MG/ML VIAL 15 MG IVP (20:15)
[2024-10-22] MEDS: 0.9 % SODIUM CHLORIDE 1,000 ML 999 ML IV (20:15)
[2024-10-22] MEDS: ONDANSETRON PF 4 MG/2 ML VIAL IV (20:15)
[2024-10-22 20:54] LABS: Bilirubin Urine NEGATIVE (NEGATIVE); Blood Urine NEGATIVE (NEGATIVE); Clarity Urine CLEAR (CLEAR); Color Urine LT. YELLOW (YELLOW); Glucose Urine UA NEGATIVE (NEGATIVE); Ketones Urine NEGATIVE (NEGATIVE); Leukocyte Esterase Urine NEGATIVE (NEGATIVE); Nitrite Urine NEGATIVE (NEGATIVE); Protein Urine NEGATIVE (NEG/TRACE)
[2024-10-22 20:58] LABS: Basophils Absolute Auto 0.1 10^3/uL (0.0-0.1); Basophils Percent Auto 0.7 % (0.2-2.0); Eosinophils Absolute Auto 0.1 10^3/uL (0.0-0.7); Eosinophils Percent Auto 1.7 % (0.9-7.0); Hematocrit 43.1 % (42.0-54.0); Hemoglobin 14.8 g/dL (14.0-18.0); Immature Granulocytes Abs Auto 0.02 10^3/uL (0.00-0.03); Immature Granulocytes Pct Auto 0.2 % (0.0-0.5); Lymphocytes Absolute Auto 1.1 10^3/uL (1.2-3.8); Lymphocytes Percent Auto 13.7 % (20.5-60.0); Mean Corpuscular HGB Conc 34.3 g/dL (29.9-35.2); Mean Corpuscular Volume 90.2 fL (80.0-94.0); Mean Platelet Volume 9.6 fL (9.5-13.5); Monocytes Absolute Auto 0.8 10^3/uL (0.3-0.8); Monocytes Percent Auto 9.3 % (1.7-12.0); Neutrophils Absolute Auto 6.1 10^3/uL (1.4-6.5); Neutrophils Percent Auto 74.4 % (43.0-75.0); Platelet Count 347 10^3/uL (150-450); Red Blood Count 4.78 10^6/uL (4.70-6.10); Red Cell Distribution Width 12.6 % (11.0-15.0); White Blood Count 8.2 10^3/uL (4.0-11.0)
[2024-10-22 20:59] LABS: Urine Microscopic Indicated NO
[2024-10-22 21:09] LABS: Alanine Aminotransferase 21 U/L (16-63); Albumin Level 3.4 g/dL (3.4-5.0); Alkaline Phosphatase 81 U/L (46-116); Aspartate Amino Transferase 17 U/L (15-37); BUN Creatinine Ratio 10.3; Bilirubin Total 0.5 mg/dL (0.2-1.0); Calcium 8.8 mg/dL (8.5-10.1); Carbon Dioxide 30.6 mmol/L (21.0-32.0); Chloride 106 mmol/L (98-107); Estimated GFR (African America >60 (>=60 mL/min/1.73m^2); Estimated GFR (Non-African Ame >60 (>=60 mL/min/1.73m^2); Globulin 3.3 g/dL; Glucose 99 mg/dL (74-106); Potassium 3.6 mmol/L (3.5-5.1); Sodium 141 mmol/L (136-145); Total Protein 6.7 g/dL (6.4-8.2)
[2024-10-22 21:33] VITALS: BP 113/68; PULSE 60; O2SAT 98
== END 2024-10-22 21:36 | disposition home or self-care (01) ==
PROVIDERS: Emergency Provider Emergency Medicine; PCP Internal Medicine
DX: R10.9 Unspecified abdominal pain (principal); R11.2 Nausea with vomiting, unspecified
CPT/HCPCS: 36415; 80053; 81003; 83690; 85025; 96361; 96374; 96375; 99284; J1885; J2405